=== PATIENT | female | born 1950 | race Caucasian/White ===

== ENCOUNTER 2017-09-20 10:42 | Emergency (ER) | payer OTHER ==
[~2017-09-20] VITALS: Ht 170.2 cm; Wt 87.5 kg
[~2017-09-20 10:42] MED LIST: ASPIR-TRIN325 M1 PO; ASPIRIN BUFFER325 M1 PO; FISH OIL CONC1 EACH PO; GLUCOSAMINE HC500 MG PO; LIPITOR80 MG PO; Levothroid,Synthroid PO; MULTIVITAMIN1 EAC2 PO; TOPROL XL50 MG PO; Zestril,Prinivil PO; Zoloft PO
[2017-09-20 11:07] LABS: POINT-OF-CARE METER ID UU13113747
[2017-09-20 11:16] LABS: EOSINOPHIL (%) 2.7 % (0-5); EOSINOPHIL COUNT 0.2 K/uL (0-0.3); HEMATOCRIT 38.2 % (36.0-46.0); IMMATURE GRANULOCYTE (%) 1.1 % (0.0-0.7); IMMATURE GRANULOCYTE COUNT 0.1 K/uL; INSTRUMENT ABS NEUTROPHIL CT 4.4 K/uL; LYMPHOCYTE COUNT 1.6 K/uL (1.0-2.8); MCH 30.6 PG (29.0-34.0); MCHC 34.8 G/DL (30.0-36.0); MEAN PLAT.VOLUME 9.2 uM^3 (9.5-12.4); MONOCYTE (%) 5.6 % (3-12); MONOCYTE COUNT 0.4 K/uL (0-0.8); NEUTROPHIL (%) 66.6 % (45-76); NEUTROPHIL COUNT 4.4 K/uL (1.8-6.4); PLATELET COUNT 168 K/uL (156-360); RBC DIS.WIDTH-CV 12.3 % (11.8-14.6); RBC DIS.WIDTH-SD 39.7 % (39-53); RED BLOOD COUNT 4.34 M/uL (3.80-5.20); WHITE BLOOD COUNT 6.7 K/uL (4.1-10.2)
[2017-09-20 11:27] LABS: CHLORIDE 105 mEq/L (99-109); POTASSIUM 3.7 mEq/L (3.7-5.4); SODIUM 138 mEq/L (136-147)
[2017-09-20 11:29] LABS: GLUCOSE 132 mg/dL (70-99)
[2017-09-20 11:30] LABS: ANION GAP 10 MEQ/L (2-14)
[2017-09-20 11:31] LABS: TOTAL BILIRUBIN 0.7 mg/dL (0.0-1.0)
[2017-09-20 11:32] LABS: ALKALINE PHOSPHATASE 68 IU/L (3-129)
[2017-09-20 11:33] LABS: GFR ESTIMATE (CALCULATED) > 59 mL/min/
[2017-09-20 11:34] LABS: UREA NITROGEN (BUN) 14 mg/dL (9-23)
[2017-09-20 11:37] LABS: TROP-I INTERPRETATION NEGATIVE; TROPONIN-I < 0.01 ng/mL (0.0-0.30)
[2017-09-20] MEDS ORDERED: DIAZEPAM5 MG PO (13:56)
[2017-09-20] MEDS ORDERED: VERTICALM25 MG PO (13:56)
[2017-09-20] MEDS ORDERED: ONDANSETRON ODT4 MG PO (13:56)
[2017-09-20 14:21] VITALS: BP 169/86
== END 2017-09-20 14:30 | disposition home or self-care (01) ==
LOC: EME 10:42
PROVIDERS: Emergency Medicine
DX: H81.10 Benign paroxysmal vertigo, unspecified ear (principal); R11.10 Vomiting, unspecified; I10 Essential (primary) hypertension; E78.5 Hyperlipidemia, unspecified; K21.9 Gastro-esophageal reflux disease without esophagitis; F32.9 Major depressive disorder, single episode, unspecified; Z85.9 Personal history of malignant neoplasm, unspecified
CPT/HCPCS: 71010; 80053; 82948; 84484; 85025; 93005; 99281; 99285; J1100; J2405; J7030